=== PATIENT | female | born 1980 | race Caucasian/White ===

== ENCOUNTER 2023-05-04 15:07 | Emergency (ER) | payer SELFPAY ==
[2023-05-04 15:13] VITALS: BP 166/97; PULSE 106; RESP 22; TEMP 36.9; O2SAT 97; BMI 34.3
[2023-05-04 15:32] VITALS: BP 158/112; PULSE 97; O2SAT 98
[2023-05-04 15:33] VITALS: PULSE 100; O2SAT 97
--- NOTE | 2023-05-04 15:42 | ED.GENADULT ---
HPI - General Adult General Chief complaint: Chest Pain Stated complaint: 185/128 bp, tingly Time Seen by Provider: 05/04/23 15:10 History of Present Illness HPI narrative: This 42-year-old female comes in with her because of anxiety symptoms and chest pressure and pain. She states that this began about 3 hours prior to arrival. She was walking and these symptoms of chest pain and anxiety came on rather suddenly. She felt some tingling sensation throughout her body and felt like she was short of breath. She had similar symptoms about a week ago. In both scenarios she thought that it was due to panic or anxiety. She states that she is visiting here from [place]. This is her home area and her father's birthday is what brings her back for some festivities. She states that she is taking lisinopril 5 mg and has Ativan as needed for anxiety. She normally does not take Ativan but did take 1 tablet 0.5 mg today without much relief. She does not report any nausea, vomiting, or exercise intolerance. She states that she is able to get out and work in the yd and do anything exertional without any chest symptoms. She states that she is a smoker and reports having a heart attack at age 25. She states that her parents are smokers and have had heart disease also. Related Data Previous Rx's Medication Instructions Recorded lorazepam 0.5 mg tablet (Ativan) 0.5 mg PO BID PRN #10 tabs 05/04/23 Allergies Allergy/AdvReac Type Severity Reaction Status Date / Time Sulfa (Sulfonamide AdvReac Severe Verified 05/04/23 15:16 Antibiotics) Review of Systems Status of ROS: Reports: 10 or more systems reviewed and unremarkable except as noted in History and below Narrative: Constitutional: No fevers, no weight gain or loss. Eyes: No discharge. No vision changes. HENT: No congestion, no sore throat, no ear pain. Cardiovascular: No palpitations. Chest pain as described above. Respiratory: No shortness of breath, no wheezes, no cough. Gastrointestinal: No abdominal pain, no vomiting, no diarrhea. Genitourinary: No dysuria, no hematuria. Musculoskeletal: Normal range of motion. Skin: No rashes, no pruritis. Neurological: No dizziness, weakness, sensory change, speech change. Endo/Heme/Allergies: No bruising or bleeding. No polydipsia. Pysch: no suicidality, no insomnia. She reports anxiety and panic symptoms. All other systems reviewed and are negative. [facility] Social History Smoking Status: Current some day smoker What tobacco products do you use: cigarettes How often do you have a drink containing alcohol: 4 or more times a week How many standard drinks containing alcohol do you have on a typical day: 1 or 2 How often do you have six or more drinks on one occasion: Weekly AUDIT-C Alcohol total score: 7 Non-prescribed substance use: denies use service: No Exam Narrative: Exam Narrative: Constitutional: Well-developed, well-nourished, no acute distress. HEENT: Normocephalic, atraumatic. Neck: Normal range of motion. Nontender. Supple. Heart: Regular. No murmurs. Normal rate. Intact distal pulses. Lungs: Clear to auscultation. No chest discomfort. No wheezes, rhonchi, or rales. Abdomen: Normal bowel sounds. Nontender. No rebound tenderness. Genitalia: Deferred. Back: No midline tenderness. Normal range of motion. Extremities: Normal range of motion. No injury. Skin: Intact. No rash. Warm. No erythema or pallor. Neurologic: No altered sensation. No weakness. Alert and oriented. Psychiatric: No suicidality. No anxiety or depression. No insomnia. Nursing notes and vitals signs are reviewed. Const: Vital Signs, click to edit/add: Vital Signs - 24 hr 05/04/23 15:13 05/04/23 15:32 05/04/23 15:33 Temperature 98.4 F Pulse Rate 97 100 Pulse Rate [Right Pulse Oximeter] 106 H Respiratory Rate 22 Blood Pressure 158/112 H Blood Pressure [Ri ght Upper Arm] 166/97 H Pulse Oximetry 97 98 97 Oxygen Delivery Me thod Room Air 05/04/23 15:47 05/04/23 16:00 Temperature Pulse Rate 102 H 88 Pulse Rate [Right Pulse Oximeter] Respiratory Rate Blood Pressure 148/88 H Blood Pressure [Ri ght Upper Arm] Pulse Oximetry 96 98 Oxygen Delivery Me thod Course Vital Signs Vital signs: Initial Vital Signs Temperature 98.4 F 05/04/23 15:13 Temperature Source Temporal Artery Scan 05/04/23 15:13 Pulse Rate 106 H 05/04/23 15:13 Pulse Rhythm Regular 05/04/23 15:13 Pulse Strength 3+ Normal 05/04/23 15:13 Respiratory Rate 22 05/04/23 15:13 Blood Pressure 166/97 H 05/04/23 15:13 Blood Pressure Mean 120 H 05/04/23 15:13 Pulse Oximetry 97 05/04/23 15:13 Oxygen Delivery Method Room Air 05/04/23 15:13 Vital Signs Temperature 98.4 F 05/04/23 15:13 Pulse Rate 106 H 05/04/23 15:13 Respiratory Rate 22 05/04/23 15:13 Blood Pressure 166/97 H 05/04/23 15:13 Pulse Oximetry 97 05/04/23 15:13 Oxygen Delivery Method Room Air 05/04/23 15:13 Temperature 98.4 F 05/04/23 15:13 Pulse Rate 88 05/04/23 16:00 Respiratory Rate 22 05/04/23 15:13 Blood Pressure 148/88 H 05/04/23 15:47 Pulse Oximetry 98 05/04/23 16:00 Oxygen Delivery Method Room Air 05/04/23 15:13 Medical Decision Making MDM Narrative Medical decision making narrative: This patient comes in with symptoms as described above which seem most likely to be related to panic and anxiety. She does have risk factors and reports a cardiac history. Today her EKG and lab results all returned with normal findings. This was reassuring to the patient. She has good exercise tolerance but does continue to smoke. She states that she smoked only socially and just a couple cigarettes daily and does not feel any otherwise cravings. I encouraged her to discontinue smoking altogether which would improve her risk profile. Today her symptoms seem much more likely related to anxiety and panic. She states that she did take an Ativan tablet but this was an old prescription which she says was more than 6 years old. She did receive an oral dose of Toradol 10 mg and Ativan 1 mg here. She is okay to be discharged home. I did provide a prescription for a few more tablets of Ativan 0.5 mg. She understands that this medication will need to be managed by her primary physician. Lab Data Labs: Lab Results 05/04/23 Range/Units 16:00 WBC 8.30 (4.50-11.00) K/uL RBC 4.43 (4.00-5.20) m/uL Hgb 15.0 (12.0-16.0) gm/dL Hct 44.5 (33.0-51.0) % MCV 101 H (80-100) fL MCH 34 (26-34) pg MCHC 34 (32-36) gm/dL RDW Coeff of [place] 12.2 (11.5-15.5) % Plt Count 251 (140-440) K/uL Neut % (Auto) 74.3 H (42.0-72.0) % Lymph % (Auto) 20.8 (20-44) % [place] % (Auto) 4.0 (0.0-11.0) % Eos % (Auto) 0.5 (0.0-7.0) % Baso % (Auto) 0.4 (0.0-3.0) % Neut # (Auto) 6.20 (1.7-7.0) K/uL Lymph # (Auto) 1.73 (0.90-2.90) K/uL [place] # (Auto) 0.30 (0.00-0.90) K/UL Eos # (Auto) 0.04 (0.00-0.50) K/uL Baso # (Auto) 0.03 (0.00-0.30) K/uL Abs Immat Gran (auto) 0.00 (0.00-0.30) K/uL Imm/Tot Granulo (auto) 0.0 % Sodium 141 (135-149) mmol/L Potassium 4.3 (3.6-5.1) mmol/L Chloride 106 (96-114) mmol/L Carbon Dioxide 25 (20-32) mmol/L Anion Gap 10 (7-15) mEq/L BUN 7 (5-24) mg/dL Creatinine 0.7 (0.5-1.5) mg/dL Estimated Creat Clear 91.33 Estimated GFR 111 ml/min Glucose 94 (60-115) mg/dL Calcium 9.9 (8.4-10.6) mg/dL POC Troponin I 0.00 L (0.01-0.04) ng/ml ECG Data Attestation: I personally reviewed and interpreted this ECG as follows: Interpretation: Normal sinus rhythm. Rate is 98 beats per minute. There are no ST or T-wave abnormalities. Discharge Plan Discharge Clinical Impression: Anxiety, Atypical chest pain Patient Disposition: Home w/ Parent or Adult Condition: Stable Additional Instructions: Take medication as prescribed. Follow up with MD or return if worsening. Prescriptions: New lorazepam [Ativan] 0.5 mg tablet 0.5 mg PO BID PRNQty: 10 0RF Stand Alone Forms: [place] [employer] Info Instructions
[2023-05-04 15:47] VITALS: BP 148/88; PULSE 102; O2SAT 96
[2023-05-04 16:00] VITALS: PULSE 88; O2SAT 98
[2023-05-04 16:08] LABS: Basophils Absolute Auto 0.03 K/uL (0.00-0.30); Basophils Percent Auto 0.4 % (0.0-3.0); Eosinophils Absolute Auto 0.04 K/uL (0.00-0.50); Eosinophils Percent Auto 0.5 % (0.0-7.0); Hematocrit 44.5 % (33.0-51.0); Lymphocytes Absolute Auto 1.73 K/uL (0.90-2.90); Lymphocytes Percent Auto 20.8 % (20-44); Mean Corpuscular HGB Conc 34 gm/dL (32-36); Mean Corpuscular Hemoglobin 34 pg (26-34); Mean Corpuscular Volume 101 fL (80-100); Neutrophils Percent Auto 74.3 % (42.0-72.0); Platelet Count* 251 K/uL (140-440); RDW Coefficient of Variation % 12.2 % (11.5-15.5); Red Blood Count 4.43 m/uL (4.00-5.20)
[2023-05-04 16:15] LABS: Slide Review Reflex No
[2023-05-04 16:20] LABS: Chloride* 106 mmol/L (96-114); Sodium* 141 mmol/L (135-149)
[2023-05-04 16:21] LABS: Potassium* 4.3 mmol/L (3.6-5.1)
[2023-05-04 16:23] LABS: Anion Gap 10 mEq/L (7-15); Carbon Dioxide* 25 mmol/L (20-32); Creatinine* 0.7 mg/dL (0.5-1.5); Est. Creatinine Clearance* 91.33; Estimated Glomerular Filt Rate 111 ml/min
[2023-05-04 16:24] LABS: Blood Urea Nitrogen* 7 mg/dL (5-24); Calcium* 9.9 mg/dL (8.4-10.6); Glucose* 94 mg/dL (60-115)
[2023-05-04] MEDS: LORazepam 1 MG TABLET PO (16:56)
--- NOTE | 2023-05-06 10:58 | ED.NURSE ---
Note was left for appeals writer that patient's Ativan prescription was accidentally sent to the [facility] pharmacy after her 05/04 ED visit. Okayed by Dr. Bran to send to patient's preferred pharmacy. Attempted to call patient on number listed ([phone]) but notes out of service. Did eventually try number listed with patient's , was able to speak to patient. She notes she is leaving for home ([place]) tomorrow, and she will deal with it when I get home. Patient declines to have Ativan prescription sent to different pharmacy at this time. No further concerns.
== END 2023-05-04 17:12 | disposition home or self-care (01) ==
PROVIDERS: Emergency Provider Emergency Medicine Emergency Medical Services
DX: R07.89 Other chest pain (principal); F41.9 Anxiety disorder, unspecified
CPT/HCPCS: 36415; 80048; 84484; 85025; 93005; 99284; A9270